=== PATIENT | male | born 1960 | race Caucasian/White ===

== ENCOUNTER → 2019-01-28 | Outpatient (CLI) | payer OTHER | LOC: CAT 11:05 | DX: Z13.6 Encounter for screening for cardiovascular disorders (principal); E78.00 Pure hypercholesterolemia, unspecified; I25.10 Atherosclerotic heart disease of native coronary artery without angina pectoris ==

== ENCOUNTER → 2019-03-15 | Outpatient (CLI) | payer BC ==
--- NOTE | 2019-03-15 10:19 | 2DMMODE ---
[facility] [address] [place] [address] 2 D/M-MODE ECHOCARDIOGRAM Name: COLEEN DAWSON Room #: REG CL Leanne#: [id number] Admission: 03/15/19 Attend Phys: Anam Griffin Discharge: Date of : 58 Report #: [id number] THIS REPORT FOR: //name// APPROVED REPORT Study performed: 03/15/2019 09:18:03 EXAM: Comprehensive 2D, Doppler, and color-flow Echocardiogram Patient Location: Out-Patient Room #: Echo lab 2 Status: routine BSA: 2.35 HR: 58 bpm BP: 146/94 mmHg Rhythm: Bradycardia Other Information Study Quality: Good Indications Hypertension/HDD Elevated calcium score 2D Dimensions RVDd: 34.53 mm IVSd: 13.43 (7-11mm) LVOT Diam: 25.13 (18-24mm) LVDd: 49.15 mm PWd: 11.92 (7-11mm) Ascending Ao: 33.02 (22-36mm) LVDs: 34.60 (25-40mm) Aortic Root: 29.71 mm IVC: 15.00 mm Volumes Left Atrial Volume (Systole) Single Plane 4CH: 50.80 mL Single Plane 2CH: 58.28 mL LA ESV Index: 26.00 mL/m2 Aortic Valve AoV Peak Kayode.: 1.12 m/s AO Peak Gr.: 4.98 mmHg LVOT Max P.67 mmHg LVOT Max V: 0.96 m/s VISH Vmax: 4.25 cm2 Mitral Valve E/A Ratio: 1.1 MV Decel. Time: 263.45 ms [facility] [address] [address] 2 D/M-MODE ECHOCARDIOGRAM Name: COLEEN DAWSON VENANCIO Room #: REG CL Leanne#: [id number] Admission: 03/15/19 Attend Phys: Anam Griffin Discharge: Date of : 58 Report #: [id number] MV E Max Kayode.: 0.59 m/s MV A Kayode.: 0.56 m/s MV PHT: 76.40 ms IVRT: 133.79 ms Pulmonary Valve PV Peak Kayode.: 1.06 m/s PV Peak Gr.: 4.52 mmHg Pulmonary Vein P Vein S: 0.55 m/s P Vein A: 0.26 m/s P Vein D: 0.32 m/s P Vein A Dur.: 110.7 msec P Vein S/D Ratio: 1.72 Tricuspid Valve TR Peak Kayode.: 2.35 m/s TR Peak Gr.: 22.13 mmHg PA Pressure: 27.00 mmHg Left Ventricle The left ventricle is normal size. There is normal LV segmental wall motion. There is normal left ventricular wall thickness. Left ventricular systolic function is normal. The left ventricular ejection fraction is within the normal range. LVEF is 55-60%. Moderate diastolic dysfunction is present (pseudonormal filling). Right Ventricle The right ventricle is normal size. The right ventricular systolic function is normal. Atria The left atrium size is normal. Right atrium is mildly dilated. Aortic Valve The aortic valve is normal in structure, trileaflet. No aortic regurgitation is present. There is no aortic valvular stenosis. Mitral Valve The mitral valve is normal in structure. There is no mitral valve regurgitation noted. No evidence of mitral valve stenosis. Tricuspid Valve The tricuspid valve is normal in structure. There is trace to mild tricuspid regurgitation. Estimated PAP 27 mmHg. There is no pulmonary [facility] [address] [place] [address] 2 D/M-MODE ECHOCARDIOGRAM Name: COLEEN DAWSON Room #: [facility] [id number] Admission: 03/15/19 Attend Phys: Anam Griffin Discharge: Date of : 58 Report #: [id number] hypertension. Pulmonic Valve The pulmonary valve is normal in structure. There is no pulmonic valvular regurgitation. Great Vessels The aortic root is normal in size. IVC is normal in size and collapses >50% with inspiration. Pericardium There is no pericardial effusion. <Conclusion> Left ventricular systolic function is normal. There is normal LV segmental wall motion. LVEF is 55-60%. Moderate diastolic dysfunction The aortic valve is normal in structure, trileaflet. No aortic regurgitation or stenosis The mitral valve is normal in structure. No mitral valve regurgitation. There is trace to mild tricuspid regurgitation. Estimated pulmonary artery pressure of 27 mmHg. There is no pericardial effusion. <ELECTRONICALLY SIGNED> By: Clayton Jones MD, FACC 03/15/19 [id number] Clayton Jones MD, FACC /INF
== END ==
LOC: NUC 07:23
DX: I07.1 Rheumatic tricuspid insufficiency (principal); R93.1 Abnormal findings on diagnostic imaging of heart and coronary circulation; I10 Essential (primary) hypertension; E78.5 Hyperlipidemia, unspecified; Z79.82 Long term (current) use of aspirin; Z79.899 Other long term (current) drug therapy